=== PATIENT | female | born 1955 | race Two or more races ===

== ENCOUNTER 2020-04-20 16:46 | Emergency (ER) | payer MEDICARE, MEDICAID ==
[~2020-04-20] VITALS: Ht 154.9 cm; Wt 80.9 kg
--- NOTE | 2020-04-20 17:04 | NUR ---
EKG AND C-COLLAR IN TRIAGE.
[2020-04-20] MEDS ORDERED: OXYC-293 PO (17:57)
[2020-04-20] MEDS ORDERED: TIZA4TAB2 PO (17:57)
[2020-04-20] MEDS ORDERED: SERT25TA PO (17:57)
[2020-04-20] MEDS ORDERED: GABA600T7 PO (17:57)
[2020-04-20] MEDS ORDERED: LISI-167 PO (17:57)
--- NOTE | 2020-04-20 18:36 | NUR ---
PT TO XR VIA WC.
--- NOTE | 2020-04-20 18:46 | NUR ---
PT BACK FROM XR. C-COLLAR REMOVED PER ERP.
[2020-04-20 19:31] VITALS: BP 143/87
--- NOTE | 2020-04-20 19:50 | NUR ---
D/C INSTRUCTIONS & F/U APPT RV'WD WITH PT. INSTRUCTED PT TO RETURN TO ED FOR CHEST PAIN, SOB, OR ANY CONCERNING SYPTOMS. ASSISTED PT OUT OF ED VIA WC WITH SON.
== END 2020-04-20 19:59 | disposition home or self-care (01) ==
LOC: ED 19:58
DX: S20.219A Contusion of unspecified front wall of thorax, initial encounter (principal); I10 Essential (primary) hypertension; R94.31 Abnormal electrocardiogram [ECG] [EKG]; V89.2XXA Person injured in unspecified motor-vehicle accident, traffic, initial encounter; Y93.89 Activity, other specified; Y92.89 Other specified places as the place of occurrence of the external cause; Y99.8 Other external cause status
CPT/HCPCS: 71046; 93005; 99283